=== PATIENT | male | born 1955 | race Caucasian/White ===

== ENCOUNTER → 2019-09-23 | Outpatient (CLI) | payer OTHER ==
[~2019-09-23] MED LIST: BENADRYL ALLERG25 M5 PO; CENTRUM SILVER1 EAC3 PO; CLINDAMYCIN150 MG PO; EPIPEN 2-PAK1 MG/ML MR; KROGER NIC21 MG/24 H T; MOTRIN800 MG PO; PEPCID20 MG PO; PREDNISONE10 MG PO; VICODIN 500 MG-1 TAB PO
== END | disposition home or self-care (01) ==
LOC: US 07:25
DX: K76.0 Fatty (change of) liver, not elsewhere classified (principal); R74.8 Abnormal levels of other serum enzymes; I10 Essential (primary) hypertension

== ENCOUNTER → 2019-09-26 | Outpatient (CLI) | payer OTHER ==
[2019-09-26 11:56] LABS: ACT PARTIAL THROMBO TIME 24.8 SECONDS (20.0-32.1); INTERNATIONAL NORM RATIO 0.9 (2.0-3.5)
[2019-09-26 12:02] LABS: URINE AMPHETAMINES < 1000 (1000ng/ml); URINE BARBITURATES < 200 (200ng/ml); URINE BENZODIAZEPINES < 200 (200ng/ml); URINE CANNABINOIDS (THC) < 50 (50ng/ml); URINE COCAINE < 300 (300ng/ml); URINE METHADONE < 300 (300ng/ml); URINE OPIATES < 300 (300ng/ml)
[2019-09-26 12:03] LABS: URINE PHENCYCLIDINE < 25 (25ng/ml)
[2019-09-27 12:10] LABS: HEP B CORE AB TOTAL Negative (Negative); HEPATITIS B SURFACE AB Reactive (.); HEPATITIS B SURFACE AG Negative (Negative); HEPATITIS C AB >11.0 (0.0-0.9)
[2019-09-27 21:10] LABS: HEPATITIS C QUANTITATION HCV Not Detected IU/mL (.)
== END | disposition home or self-care (01) ==
LOC: LAB 09:56
PROVIDERS: Internal Medicine Gastroenterology
DX: R74.8 Abnormal levels of other serum enzymes (principal); B18.2 Chronic viral hepatitis C

== ENCOUNTER 2020-10-30 13:51 | Emergency (ER) | payer SELFPAY ==
[~2020-10-30] VITALS: Ht 170.1 cm; Wt 72.6 kg
[2020-10-30] MEDS ORDERED: MEDROL DOSEPAK4 MG PO ×2 (17:01→17:07)
== END 2020-10-30 17:00 | disposition home or self-care (01) ==
LOC: ED 13:51
DX: T78.3XXA Angioneurotic edema, initial encounter (principal); Z88.0 Allergy status to penicillin; Z79.899 Other long term (current) drug therapy; Z91.018 Allergy to other foods; Z53.29 Procedure and treatment not carried out because of patient's decision for other reasons

== ENCOUNTER 2021-03-09 19:52 | Observation (INO) | payer OTHER ==
[~2021-03-09] VITALS: Ht 170.1 cm; Wt 68.0 kg
[~2021-03-09 19:52] MED LIST changes: +MEDROL DOSEPAK4 MG PO
[2021-03-09 20:02] VITALS: BP 137/71
[2021-03-09] MEDS ORDERED: ASPIRIN ADULT L81 M2 PO (21:02)
[2021-03-09 21:20] VITALS: BP 137/71
[2021-03-09 21:29] LABS: BASO % 0.1 % (0.0-1.0); EOS % 0.3 % (1.0-4.0); HEMATOCRIT 29.6 % (42.0-52.0); LYMPH # 1.1 10*3/uL (1.3-4.4); LYMPH % 12.3 % (27.0-41.0); MEAN CELL VOLUME 89.4 fl (80.0-94.0); MEAN CORPUSCULAR HGB 31.1 pg (27.0-31.0); MEAN CORPUSCULAR HGB CONC 34.8 g/dl (33.0-37.0); MEAN PLATELET VOLUME 9.7 fl (9.6-12.3); MONO % 11.3 % (3.0-9.0); NEUT % 75.7 % (47.0-73.0); PLATELET COUNT AUTOMATED 399 10*3/uL (130-400); RED BLOOD COUNT 3.31 10*6/uL (4.50-5.90); RED CELL DISTRI WIDTH 14.5 % (0-14.5); WHITE BLOOD COUNT 9.2 10*3/uL (4.8-10.8)
[2021-03-09 21:44] LABS: ALBUMIN 3.8 gm/dl (3.1-4.5); ALKALINE PHOSPHATASE 87 U/L (45-117); BUN 7 mg/dl (7-24); CHLORIDE 93 mmol/L (98-107); CREATININE 0.75 mg/dL (0.70-1.30); POTASSIUM 4.8 mmol/L (3.5-5.1); SGOT/AST 44 IU/L (3-35); SGPT/ALT 38 U/L (12-78); SODIUM 126 mmol/L (136-145); TOTAL PROTEIN 7.7 gm/dL (6.4-8.2)
[2021-03-09 22:17] VITALS: BP 117/62
[2021-03-09 22:53] VITALS: BP 111/56
[2021-03-09 23:36] VITALS: BP 118/59
[2021-03-10 00:14] LABS: BILIRUBIN Negative (Negative); BLOOD Negative (Negative); CLARITY Clear (Clear); COLOR Yellow (Yellow); GLUCOSE Negative (Negative); KETONE 1+ (Negative); LEUKO ESTERASE Negative (Negative); NITRITE Negative (Negative); PH 6.5 (4.5-8.0)
[2021-03-10 00:28] LABS: RBC 0-2 rbc/hpf (0-2); WBC 0-2 wbc/hpf (0-5)
[2021-03-10 02:47] VITALS: BP 112/48
[2021-03-10 03:16] LABS: BASO % 0.3 % (0.0-1.0); EOS % 0.6 % (1.0-4.0); HEMATOCRIT 27.7 % (42.0-52.0); LYMPH # 1.1 10*3/uL (1.3-4.4); LYMPH % 16.2 % (27.0-41.0); MEAN CELL VOLUME 90.2 fl (80.0-94.0); MEAN CORPUSCULAR HGB 30.3 pg (27.0-31.0); MEAN CORPUSCULAR HGB CONC 33.6 g/dl (33.0-37.0); MEAN PLATELET VOLUME 8.3 fl (9.6-12.3); MONO # 0.8 10*3/uL (0.1-1.0); MONO % 11.6 % (3.0-9.0); NEUT # 4.8 10*3/uL (2.3-7.9); RED BLOOD COUNT 3.07 10*6/uL (4.50-5.90); RED CELL DISTRI WIDTH 14.5 % (0-14.5); WHITE BLOOD COUNT 6.8 10*3/uL (4.8-10.8)
[2021-03-10 03:19] LABS: PLATELET COUNT AUTOMATED 262 10*3/uL (130-400)
[2021-03-10 03:25] VITALS: BP 114/50
[2021-03-10 03:28] LABS: BUN 9 mg/dl (7-24); CHLORIDE 94 mmol/L (98-107); CREATININE 0.74 mg/dL (0.70-1.30); POTASSIUM 4.5 mmol/L (3.5-5.1); SODIUM 127 mmol/L (136-145)
[2021-03-10] MEDS ORDERED: LISINOPRIL10 M1 PO (03:50)
[2021-03-10 08:00] VITALS: BP 125/61
[2021-03-10 11:45] VITALS: BP 127/60
[2021-03-10 16:00] VITALS: BP 141/65
[2021-03-10 20:00] VITALS: BP 136/53
[2021-03-11] VITALS: BP 134/82
[2021-03-11 06:06] LABS: BASO # 0.1 10*3/uL (0.0-0.1); BASO % 0.5 % (0.0-1.0); EOS # 0.1 10*3/uL (0.0-0.4); EOS % 1.1 % (1.0-4.0); HEMATOCRIT 28.1 % (42.0-52.0); LYMPH # 1.2 10*3/uL (1.3-4.4); LYMPH % 12.9 % (27.0-41.0); MEAN CELL VOLUME 92.7 fl (80.0-94.0); MEAN CORPUSCULAR HGB CONC 32.4 g/dl (33.0-37.0); MEAN PLATELET VOLUME 8.8 fl (9.6-12.3); MONO # 0.8 10*3/uL (0.1-1.0); NEUT # 7.2 10*3/uL (2.3-7.9); NEUT % 77.2 % (47.0-73.0); PLATELET COUNT AUTOMATED 277 10*3/uL (130-400); RED BLOOD COUNT 3.03 10*6/uL (4.50-5.90); RED CELL DISTRI WIDTH 14.8 % (0-14.5); WHITE BLOOD COUNT 9.4 10*3/uL (4.8-10.8)
[2021-03-11 06:26] LABS: BUN 11 mg/dl (7-24); CHLORIDE 98 mmol/L (98-107); CREATININE 0.66 mg/dL (0.70-1.30); SODIUM 130 mmol/L (136-145)
[2021-03-11 08:00] VITALS: BP 113/61
[2021-03-11 12:00] VITALS: BP 128/84
[2021-03-11 16:00] VITALS: BP 128/88
[2021-03-11 20:00] VITALS: BP 150/71
[2021-03-12] VITALS: BP 149/73
[2021-03-12 08:00] VITALS: BP 146/80
[2021-03-12] MEDS ORDERED: NICOTINE PATCH1 EAC2 TD (11:47)
[2021-03-12] MEDS ORDERED: HYDROCODONE-AC1 EAC1 PO (11:48)
[2021-03-12 12:00] VITALS: BP 121/60
== END 2021-03-12 12:20 | disposition home or self-care (01) ==
LOC: ED 19:52 → 5E 03-10 02:09 → EDHOLD 03-10 02:09 → 5E 03-10 02:09
PROVIDERS: Emergency Medicine; Internal Medicine; ADMIT Family Medicine; ATTEND Family Medicine
DX: J94.2 Hemothorax (principal); J18.0 Bronchopneumonia, unspecified organism; S22.42XA Multiple fractures of ribs, left side, initial encounter for closed fracture; S22.39XA Fracture of one rib, unspecified side, initial encounter for closed fracture; E87.1 Hypo-osmolality and hyponatremia; S32.019A Unspecified fracture of first lumbar vertebra, initial encounter for closed fracture; T79.7XXA Traumatic subcutaneous emphysema, initial encounter; R55 Syncope and collapse; M19.90 Unspecified osteoarthritis, unspecified site; R09.02 Hypoxemia; F17.210 Nicotine dependence, cigarettes, uncomplicated; D64.9 Anemia, unspecified; E87.8 Other disorders of electrolyte and fluid balance, not elsewhere classified; R73.9 Hyperglycemia, unspecified; I10 Essential (primary) hypertension; R74.01 Elevation of levels of liver transaminase levels; E44.1 Mild protein-calorie malnutrition; J90 Pleural effusion, not elsewhere classified; W18.09XA Striking against other object with subsequent fall, initial encounter; Z71.6 Tobacco abuse counseling; Y93.89 Activity, other specified; Y92.89 Other specified places as the place of occurrence of the external cause; Y99.8 Other external cause status